=== PATIENT | male | born 1980 | race Hispanic/Latino ===

== ENCOUNTER 2020-05-05 08:18 | Emergency (ER) | payer OTHER ==
[2020-05-05] MEDS ORDERED: SODIUM CHLORIDE 0.9% 1000 ML 1,000 ML IV ONE (09:12)
[2020-05-05] MEDS ORDERED: diphenhydrAMINE 50 MG/ML VIAL IV ONE (09:12)
[2020-05-05] MEDS ORDERED: FAMOTIDINE 20 MG/2 ML INJ IV ONE (09:12)
--- NOTE | 2020-05-05 09:24 | Emergency Department Report ---
ED General Adult HPI - General Chief complaint: Pain General Stated complaint: BODY PAIN Time Seen by Provider: 05/05/20 08:37 Source: EMS Mode of arrival: Ambulatory Limitations: No Limitations - History of Present Illness Initial comments: 40-year-old male with past medical history of substance abuse presents to the hospital from senior care (incarcerated x4 months) with possible allergic reaction. Patient states he woke up 3 AM with generalized muscle cramps and developed a burning rash to his face and chest. Patient denies nausea, vomiting, fever, co ugh, shortness of breath, tongue swelling, difficulty swallowing, or throat swelling. Patient received Benadryl and Decadron from senior care prior to arrival however, dose of medications were not specified. Patient denies taking any current medications, drugs, or new food exposure. Patient does states he has an allergy to bee stings. Severity scale (0 -10): 0 - Related Data Previous Rx's Medication Instructions Recorded Last Taken Type EPINEPHrine [Epipen] 0.3 mg IJ ONCE PRN #1 auto.injct 05/05/20 Unknown Rx Famotidine [Pepcid] 20 mg PO BID #10 tablet 05/05/20 Unknown Rx diphenhydrAMINE [Benadryl CAP] 50 mg PO Q8HR PRN #20 capsule 05/05/20 Unknown Rx predniSONE [Deltasone] 40 mg PO QDAY 5 Days tab 05/05/20 Unknown Rx Allergies Allergy/AdvReac Type Severity Reaction Status Date / Time No Known Allergies Allergy Unverified 05/05/20 09:13 ED Review of Systems ROS: Stated complaint: BODY PAIN Other details as noted in HPI Comment: All other systems reviewed and negative ED Past Medical Hx - Past Medical History Previous Medical History?: No - Surgical History Past Surgical History?: No - Social History Smoking Status: Current Every Day Smoker Substance Use Type: None - Medications Home Medications: Home Medications Medication Instructions Recorded Confirmed Last Taken Type EPINEPHrine [Epipen] 0.3 mg IJ ONCE PRN #1 auto.injct 05/05/20 Unknown Rx Famotidine [Pepcid] 20 mg PO BID #10 tablet 05/05/20 Unknown Rx diphenhydrAMINE [Benadryl CAP] 50 mg PO Q8HR PRN #20 capsule 05/05/20 Unknown Rx predniSONE [Deltasone] 40 mg PO QDAY 5 Days tab 05/05/20 Unknown Rx ED Physical Exam - General Limitations: No Limitations - Other Other exam information: General: No acute distress Head: Atraumatic Eyes: normal appearance ENT: Moist mucous membranes Neck: Normal appearance, no midline tenderness Chest: Clear to auscultation bilaterally CV: Regular rate and rhythm Abdomen: Soft, normal bowel sounds, nontender, nondistended, no rebound or guarding Back: Normal inspection Extremity: Normal inspection, full range of motion Neuro: Alert O x 3, no facial asymmetry, speech clear, no gross motor sensory deficit Psych: Appropriate behavior Skin: Erythematous rash to face and trunk ED Course Vital Signs 05/05/20 05/05/20 05/05/20 08:38 08:48 11:31 Temperature 99.0 F Pulse Rate 72 77 Respiratory 18 18 18 Rate Blood Pressure 124/80 Blood Pressure 112/75 [Left] O2 Sat by Pulse 99 99 98 Oximetry ED Medical Decision Making - Lab Data Result diagrams: 05/05/20 09:47 05/05/20 09:47 Lab Results 05/05/20 05/05/20 Range/Units 09:47 09:47 WBC 5.4 (4.5-11.0) K/mm3 RBC 4.29 (3.65-5.03) M/mm3 Hgb 14.0 (11.8-15.2) gm/dl Hct 40.5 (35.5-45.6) % MCV 94 (84-94) fl MCH 33 H (28-32) pg MCHC 35 H (32-34) % RDW 12.6 L (13.2-15.2) % Plt Count 154 (140-440) K/mm3 Lymph % (Auto) 8.8 L (13.4-35.0) % [place] % (Auto) 6.9 (0.0-7.3) % Eos % (Auto) 0.1 (0.0-4.3) % Baso % (Auto) 0.4 (0.0-1.8) % Lymph # (Auto) 0.5 L (1.2-5.4) K/mm3 [place] # (Auto) 0.4 (0.0-0.8) K/mm3 Eos # (Auto) 0.0 (0.0-0.4) K/mm3 Baso # (Auto) 0.0 (0.0-0.1) K/mm3 Seg Neutrophils % 83.8 H (40.0-70.0) % Seg Neutrophils # 4.6 (1.8-7.7) K/mm3 Sodium 140 (137-145) mmol/L Potassium 4.4 (3.6-5.0) mmol/L Chloride 106.1 (98-107) mmol/L Carbon Dioxide 21 L (22-30) mmol/L Anion Gap 17 mmol/L BUN 14 (9-20) mg/dL Creatinine 1.0 (0.8-1.3) mg/dL Estimated GFR > 60 ml/min BUN/Creatinine Ratio 14 % Glucose 97 (75-100) mg/dL Calcium 9.8 (8.4-10.2) mg/dL Magnesium 1.90 (1.7-2.3) mg/dL Total Creatine Kinase 334 H (55-170) units/L - Medical Decision Making Patient observed in the ED for over 4 hours without advancement of allergy symptoms. He still has a visible rash but states overall his symptoms are improved. No signs of airway compromise or swelling. It is unclear what caused patient's allergic reaction. Patient will be discharged back to the senior care with allergy med prescription including for EpiPen as needed Critical Care Time: No Critical care attestation.: If time is entered above; I have spent that time in minutes in the direct care of this critically ill patient, excluding procedure time. ED Disposition Clinical Impression: Allergic reaction Disposition: DC-01 TO HOME OR SELFCARE Is pt being admited?: No Does the pt Need Aspirin: No Condition: Stable Instructions: Allergies, Adult, [id number], How to Use an Auto-Injector Pen Additional Instructions: Take the medication as prescribed. Follow-up with your doctor or doctor/clinic provided. Return if symptoms worsen as indicated by your discharge instructions. Prescriptions: diphenhydrAMINE [Benadryl CAP] 50 mg PO Q8HR PRN #20 capsule PRN Reason: Allergy Symptoms predniSONE [Deltasone] 40 mg PO QDAY 5 Days tab EPINEPHrine [Epipen] 0.3 mg IJ ONCE PRN #1 auto.injct PRN Reason: Anaphylaxis Famotidine [Pepcid] 20 mg PO BID #10 tablet Referrals: PRIMARY CARE, [Primary Care Provider] - 3-5 Days Time of Disposition: 12:26
[2020-05-05 11:13] LABS: Basophils % (Auto) 0.4 % (0.0-1.8); Eosinophils % (Auto) 0.1 % (0.0-4.3); Hematocrit 40.5 % (35.5-45.6); Lymphocytes # (Auto) 0.5 K/mm3 (1.2-5.4); Lymphocytes % (Auto) 8.8 % (13.4-35.0); Mean Corpuscular HGB Conc 35 % (32-34); Mean Corpuscular Volume 94 fl (84-94); Monocytes # (Auto) 0.4 K/mm3 (0.0-0.8); Monocytes % (Auto) 6.9 % (0.0-7.3); Platelet Count 154 K/mm3 (140-440); Red Blood Count 4.29 M/mm3 (3.65-5.03); Red Cell Distribution Width 12.6 % (13.2-15.2)
[2020-05-05 11:28] LABS: BUN/Creatinine Ratio 14; Blood Urea Nitrogen 14 mg/dL (9-20); Calcium 9.8 mg/dL (8.4-10.2); Hemolysis Index 23
[2020-05-05 11:32] VITALS: BP 112/75
== END 2020-05-05 12:41 | disposition home or self-care (01) ==
LOC: ED 08:18
DX: T78.40XA Allergy, unspecified, initial encounter (principal); F17.200 Nicotine dependence, unspecified, uncomplicated; Z79.899 Other long term (current) drug therapy; X58.XXXA Exposure to other specified factors, initial encounter
CPT/HCPCS: 36415; 80048; 82550; 83735; 85025; 96361; 96374; 96375; 99284; J1200; J7030

== ENCOUNTER 2020-09-27 14:58 | Inpatient (IN) | payer OTHER ==
--- NOTE | 2020-09-27 17:09 | Emergency Department Report ---
ED Male HPI - General Chief complaint: Wound/Laceration Stated complaint: CHEMICAL/UTI Time Seen by Provider: 09/27/20 16:13 Source: patient Mode of arrival: Ambulatory Limitations: No Limitations - History of Present Illness Initial comments: Patient is a 40-year-old male who presents emergency room with complaints of penile pain. Patient states he injected meth into the base of his penis 5 days ago. Patient states 2 days ago he developed a black area to the head of his penis. Patient states the pain is severe. Patient dates the pain is a 10 out of 10. Patient states he is unable to urinate. Patient states he has to stick something into the head of his penis to help him urinate. Patient denies fever and chills. Patient states this is the first time he ever injected meth into his penis. Patient states he normally injects into his legs. Patient also complains of a abscess to the left thigh. Patient states the pain of his thigh is a 5 out of 10. Patient states the penile pain is better with rest. Pain is worse with palpation and movement and urinating. Patient denies recent travel. Patient denies recent international travel. Patient denies exposure to the novel coronavirus. Patient denies sick contacts. Patient denies fever and chills. Patient denies cough. Patient denies diarrhea. Patient denies coming in contact with anybody with symptoms of the novel coronavirus. -: Sudden Severity: severe Severity scale (0 -10): 10 Consistency: constant Improves with: rest Worsens with: urination, palpation, movement trauma swelling, urinary retention, dysuria - Related Data Sexually active: No Previous Rx's Medication Instructions Recorded Last Taken Type EPINEPHrine [Epipen] 0.3 mg IJ ONCE PRN #1 auto.injct 05/05/20 Unknown Rx Famotidine [Pepcid] 20 mg PO BID #10 tablet 05/05/20 Unknown Rx RX: predniSONE [Deltasone] 40 mg PO QDAY 5 Days tab 05/05/20 Unknown Rx diphenhydrAMINE [Benadryl CAP] 50 mg PO Q8HR PRN #20 capsule 05/05/20 Unknown Rx Allergies Allergy/AdvReac Type Severity Reaction Status Date / Time No Known Allergies Allergy Unverified 05/05/20 09:13 ED Review of Systems ROS: Stated complaint: CHEMICAL/UTI Other details as noted in HPI Constitutional: denies: chills, fever Eyes: denies: eye pain, eye discharge, vision change ENT: denies: ear pain, throat pain Respiratory: denies: cough, shortness of breath, wheezing Cardiovascular: denies: chest pain, palpitations Endocrine: no symptoms reported Gastrointestinal: denies: abdominal pain, nausea, diarrhea Genitourinary: as per HPI, dysuria. denies: urgency Musculoskeletal: denies: back pain, joint swelling, arthralgia Skin: denies: rash, lesions Neurological: denies: headache, weakness, paresthesias Psychiatric: denies: anxiety, depression Hematological/Lymphatic: denies: easy bleeding, easy bruising ED Past Medical Hx - Past Medical History Previous Medical History?: No - Surgical History Past Surgical History?: No - Family History Family history: no significant - Social History Smoking Status: Current Every Day Smoker Substance Use Type: Alcohol, Methamphetamines - Medications Home Medications: Home Medications Medication Instructions Recorded Confirmed Last Taken Type EPINEPHrine [Epipen] 0.3 mg IJ ONCE PRN #1 auto.injct 05/05/20 Unknown Rx Famotidine [Pepcid] 20 mg PO BID #10 tablet 05/05/20 Unknown Rx RX: predniSONE [Deltasone] 40 mg PO QDAY 5 Days tab 05/05/20 Unknown Rx diphenhydrAMINE [Benadryl CAP] 50 mg PO Q8HR PRN #20 capsule 05/05/20 Unknown Rx ED Physical Exam - General Limitations: No Limitations General appearance: alert, in no apparent distress - Head Head exam: Present: atraumatic, normocephalic - Eye Eye exam: Present: normal appearance - ENT ENT exam: Present: mucous membranes moist - Neck Neck exam: Present: normal inspection - Respiratory Respiratory exam: Present: normal lung sounds bilaterally. Absent: respiratory distress - Cardiovascular Cardiovascular Exam: Present: regular rate, normal rhythm. Absent: systolic murmur, diastolic murmur, rubs, gallop - GI/Abdominal GI/Abdominal exam: Present: soft, normal bowel sounds. Absent: distended, guarding - Rectal Rectal exam: Present: deferred - exam: Present: other (General exam done. Black area to the barraza of the penis noted. The black area is around the meatus. The meatus is not patent. The penis is tender to palpation. The injection site is at the base of the penis. Red area noted.) - Extremities Exam Extremities exam: Present: normal inspection (Except left thigh.), tenderness (Tenderness palpation to the left thigh with red area.) - Back Exam Back exam: Present: normal inspection - Neurological Exam Neurological exam: Present: alert, oriented X3 - Psychiatric Psychiatric exam: Present: normal affect, normal mood - Skin Skin exam: Present: warm, dry, normal color, other (Open cellulitis noted to the left thigh with a black eschar.). Absent: rash ED Course Vital Signs 09/27/20 15:04 Temperature 98.2 F Pulse Rate 95 H Respiratory 18 Rate Blood Pressure 131/84 O2 Sat by Pulse 97 Oximetry - Reevaluation(s) Reevaluation #1: Patient has an IV. Patient is complaining of worsening and severe pain in the penis. Patient will be given Dilaudid and fluids. Patient also be given Clinda. 09/27/20 19:37 Reevaluation #2: Patient was able to urinate a little bit. Patient does not want a Terrazas. 09/27/20 20:30 Reevaluation #3: I discussed all results with patient. I discussed plan of care with patient. Patient agrees with plan of care and admission. Patient to be admitted to the hospitalist service. 09/27/20 21:52 - Consultations Consultation #1: I discussed case with urologist, Dr. Harvey. Dr. Harvey recommends placing a Terrazas and having general surgery see the patient here. Dr. Harvey does not recommend a emergent transfer to [facility] for urologic and would not accept the patient. 09/27/20 17:21 Consultation #2: I discussed case with Dr. Mesa, general surgery. Dr. Mesa would like urology involved with the patient's care. 09/27/20 21:35 Consultation #3: hospitalist consulted for admission. Hospitalist to admit patient. Hospitalist wants the patient to be bridged to [facility] with remote telemetry. 09/27/20 21:51 09/27/20 21:51 ED Medical Decision Making - Lab Data Result diagrams: 09/27/20 19:33 09/27/20 19:33 - Medical Decision Making Patient is a 40-year-old male that presents emergency room with complaints of penile pain. Patient states that he injected meth into his penis a few days back. Patient has severe tenderness to the barraza of his penis. Patient has a blackened area around the meatus. Patient also complained of some dysuria. Patient also complained of secondary not wanting to pee and urinary retention due to dysuria and pain. patient had labs done which were essentially unremarkable. I discussed the case with [facility] to see if there was a need for emergent debridement and urology states that the case can be managed here. Patient given IV Clinda and pain medications and fluids. I discussed the case with general surgery general surgery says patient to be admitted but urology needs to be involved. Patient admitted to the hospital service for further evaluation treatment. Critical care time documented due to the multiple reassessments, prolonged time at the bedside, interpretation of diagnostics and labs. . - Differential Diagnosis Penile abscess, penis pain, cellulitis Critical Care Time: Yes Critical care time in (mins) excluding proc time.: 35 Critical care attestation.: If time is entered above; I have spent that time in minutes in the direct care of this critically ill patient, excluding procedure time. Critical Care Time: 35 minutes ED Disposition Clinical Impression: Penile pain, Cellulitis of left thigh, Penile cellulitis Disposition: DC-09 OP ADMIT IP TO THIS HOSP Is pt being admited?: Yes Does the pt Need Aspirin: No Condition: Critical Time of Disposition: 21:43
[2020-09-27] MEDS ORDERED: CLINDAMYCIN 600 MG/50 mL 600 MG/50 ML BAG IV ONE (17:10)
[2020-09-27] MEDS ORDERED: HYDROmorphone 1 MG/1 ML INJ IV ONE ×2 (19:23→20:35)
[2020-09-27] MEDS ORDERED: ONDANSETRON 4 MG/2 ML INJ IV ONE (19:23)
[2020-09-27] MEDS ORDERED: SODIUM CHLORIDE 0.9% 1000 ML 1,000 ML IV ONE (19:26)
[2020-09-27 19:39] LABS: Basophils # (Auto) 0.1 K/mm3 (0.0-0.1); Basophils % (Auto) 0.8 % (0.0-1.8); Eosinophils # (Auto) 0.3 K/mm3 (0.0-0.4); Eosinophils % (Auto) 3.1 % (0.0-4.3); Hematocrit 36.3 % (35.5-45.6); Hemoglobin 12.2 gm/dl (11.8-15.2); Lymphocytes # (Auto) 1.8 K/mm3 (1.2-5.4); Mean Corpuscular HGB Conc 34 % (32-34); Mean Corpuscular Volume 93 fl (84-94); Monocytes # (Auto) 0.7 K/mm3 (0.0-0.8); Monocytes % (Auto) 8.2 % (0.0-7.3); Platelet Count 293 K/mm3 (140-440); Red Blood Count 3.89 M/mm3 (3.65-5.03); Red Cell Distribution Width 12.5 % (13.2-15.2)
[2020-09-27 20:06] LABS: Alanine Aminotransferase 18 units/L (7-56); Albumin 4.1 g/dL (3.9-5); BUN/Creatinine Ratio 15; Blood Urea Nitrogen 12 mg/dL (9-20); Calcium 9.1 mg/dL (8.4-10.2); Hemolysis Index 2
[2020-09-27 22:09] LABS: Bilirubin,Urine NEG (Negative); Blood,Urine MOD (Negative); Color,Urine Yellow (Yellow); Mucus,Urine FEW /HPF; Protein,Urine <15 mg/dL mg/dL (Negative)
[2020-09-27] MEDS ORDERED: ACETAMINOPHEN 325 MG TAB PO PRN (22:14)
[2020-09-27] MEDS ORDERED: ONDANSETRON 4 MG/2 ML INJ IV PRN (22:14)
[2020-09-27] MEDS ORDERED: hydrALAZINE 20 MG/1 ML INJ IV PRN (22:16)
--- NOTE | 2020-09-27 22:21 | History and Physical Report ---
History of Present Illness Date of examination: 09/27/20 Date of admission: 09/27/20 21:52 Chief complaint: Penile pain and cellulitis History of present illness: 40-year-old male with history of meth abuse was brought to the emergency room because of penile pain for last 5 days. patient states he injected meth into the base of his penis 5 days ago. Patient states 2 days ago he developed a black area to the head of his penis. Patient states the pain is severe. Patient dates the pain is a 10 out of 10. Patient states he is unable to urinate. Patient states he has to stick something into the head of his penis to help him urinate. Patient denies fever and chills. Patient states this is the first time he ever injected meth into his penis. Patient states he normally injects into his legs. Patient also complains of a abscess to the left thigh. Patient states the pain of his thigh is a 5 out of 10. Patient states the penile pain is better with rest. Pain is worse with palpation and movement and urinating. Past History Past Medical History: other (Meth abuse) Medications and Allergies Allergies Allergy/AdvReac Type Severity Reaction Status Date / Time No Known Allergies Allergy Unverified 05/05/20 09:13 Home Medications Medication Instructions Recorded Confirmed Last Taken Type EPINEPHrine [Epipen] 0.3 mg IJ ONCE PRN #1 auto.injct 05/05/20 Unknown Rx Famotidine [Pepcid] 20 mg PO BID #10 tablet 05/05/20 Unknown Rx diphenhydrAMINE [Benadryl CAP] 50 mg PO Q8HR PRN #20 capsule 05/05/20 Unknown Rx predniSONE [Deltasone] 40 mg PO QDAY 5 Days tab 05/05/20 Unknown Rx Review of Systems Genitourinary Male: genital pain, genital sores, other (Penile celluliti s/abscess) Exam - Constitutional Vitals: Temp Pulse Resp BP Pulse Ox 98.2 F 95 H 18 131/84 97 09/27/20 15:04 09/27/20 15:04 09/27/20 15:04 09/27/20 15:04 09/27/20 15:04 General appearance: Present: no acute distress, well-nourished - EENT Eyes: Present: PERRL ENT: hearing intact, clear oral mucosa - Neck Neck: Present: supple, normal ROM - Respiratory Respiratory effort: normal Respiratory: bilateral: CTA - Cardiovascular Heart Sounds: Present: S1 & S2. Absent: rub, click - Extremities Extremities: pulses symmetrical, No edema Peripheral Pulses: within normal limits - Abdominal General gastrointestinal: Present: soft, non-tender, non-distended, normal bowel sounds Male genitourinary: Present: tender (Penile cellulitis and abscess) - Integumentary Integumentary: Present: clear, warm, dry - Musculoskeletal Musculoskeletal: gait normal, strength equal bilaterally - Psychiatric Psychiatric: appropriate mood/affect, intact judgment & insight - Neurologic Neurologic: CNII-XII intact, moves all extremities Results - Labs CBC & Chem 7: 09/27/20 19:33 09/27/20 19:33 Labs: Laboratory Last Values WBC 8.1 K/mm3 (4.5-11.0) 09/27/20 19:33 RBC 3.89 M/mm3 (3.65-5.03) 09/27/20 19:33 Hgb 12.2 gm/dl (11.8-15.2) 09/27/20 19:33 Hct 36.3 % (35.5-45.6) 09/27/20 19:33 MCV 93 fl (84-94) 09/27/20 19:33 MCH 31 pg (28-32) 09/27/20 19:33 MCHC 34 % (32-34) 09/27/20 19:33 RDW 12.5 % (13.2-15.2) L 09/27/20 19:33 Plt Count 293 K/mm3 (140-440) 09/27/20 19:33 Lymph % (Auto) 22.0 % (13.4-35.0) 09/27/20 19:33 [place] % (Auto) 8.2 % (0.0-7.3) H 09/27/20 19:33 Eos % (Auto) 3.1 % (0.0-4.3) 09/27/20 19:33 Baso % (Auto) 0.8 % (0.0-1.8) 09/27/20 19:33 Lymph # (Auto) 1.8 K/mm3 (1.2-5.4) 09/27/20 19:33 [place] # (Auto) 0.7 K/mm3 (0.0-0.8) 09/27/20 19:33 Eos # (Auto) 0.3 K/mm3 (0.0-0.4) 09/27/20 19:33 Baso # (Auto) 0.1 K/mm3 (0.0-0.1) 09/27/20 19:33 Seg Neutrophils % 65.9 % (40.0-70.0) 09/27/20 19:33 Seg Neutrophils # 5.4 K/mm3 (1.8-7.7) 09/27/20 19:33 Sodium 138 mmol/L (137-145) 09/27/20 19:33 Potassium 4.1 mmol/L (3.6-5.0) 09/27/20 19:33 Chloride 103.9 mmol/L (98-107) 09/27/20 19:33 Carbon Dioxide 25 mmol/L (22-30) 09/27/20 19:33 Anion Gap 13 mmol/L 09/27/20 19:33 BUN 12 mg/dL (9-20) 09/27/20 19:33 Creatinine 0.8 mg/dL (0.8-1.3) 09/27/20 19:33 Estimated GFR > 60 ml/min 09/27/20 19:33 BUN/Creatinine Ratio 15 % 09/27/20 19:33 Glucose 91 mg/dL (75-100) 09/27/20 19:33 Calcium 9.1 mg/dL (8.4-10.2) 09/27/20 19:33 Total Bilirubin 0.50 mg/dL (0.1-1.2) 09/27/20 19:33 AST 20 units/L (5-40) 09/27/20 19:33 ALT 18 units/L (7-56) 09/27/20 19:33 Alkaline Phosphatase 110 units/L (35-129) 09/27/20 19:33 Total Protein 6.2 g/dL (6.3-8.2) L 09/27/20 19:33 Albumin 4.1 g/dL (3.9-5) 09/27/20 19:33 Albumin/Globulin Ratio 2.0 % 09/27/20 19:33 Urine Color Yellow (Yellow) 09/27/20 22:00 Urine Turbidity Hazy (Clear) 09/27/20 22:00 Urine pH 6.0 (5.0-7.0) 09/27/20 22:00 Ur Specific [place] 1.026 (1.003-1.030) 09/27/20 22:00 Urine Protein <15 mg/dl mg/dL (Negative) 09/27/20 22:00 Urine Glucose (UA) Neg mg/dL (Negative) 09/27/20 22:00 Urine Ketones Neg mg/dL (Negative) 09/27/20 22:00 Urine Blood Mod (Negative) 09/27/20 22:00 Urine Nitrite Neg (Negative) 09/27/20 22:00 Urine Bilirubin Neg (Negative) 09/27/20 22:00 Urine Urobilinogen 4.0 mg/dL (<2.0) 09/27/20 22:00 Ur Leukocyte Esterase Neg (Negative) 09/27/20 22:00 Urine WBC (Auto) 6.0 /HPF (0.0-6.0) 09/27/20 22:00 Urine RBC (Auto) 36.0 /HPF (0.0-6.0) 09/27/20 22:00 U Epithel Cells (Auto) < 1.0 /HPF (0-13.0) 09/27/20 22:00 Urine Mucus Few /HPF 09/27/20 22:00 Assessment and Plan VTE prophylaxis?: Chemical Plan of care discussed with patient/family: Yes - Patient Problems (1) Penile cellulitis Current Visit: Yes Status: Acute Plan to address problem: Admit the patient to the medical floor. Cardiac diet. Half-normal saline at the rate of 100 cc/h. Zosyn 4.5 g IV every 8 hours and vancomycin 1 g IV every 12 hours. Will consult surgery as well as urology to see the patient. Blood culture. Wound culture recheck CBC BMP in the morning (2) Cellulitis of left thigh Current Visit: Yes Status: Acute Plan to address problem: Half-normal saline at the rate of 100 cc/h. Zosyn 4.5 g IV every 8 hours and vancomycin 1 g IV every 12 hours. Will consult surgery as well as urology to see the patient. Blood culture. Wound culture recheck CBC BMP in the morning (3) Penile pain Current Visit: Yes Status: Acute Plan to address problem: Tylenol 659 p.o. every 6 hours as needed. Morphine 2 mg IV every 4 hours as needed. (4) Methamphetamine abuse Current Visit: Yes Status: Acute Plan to address problem: We will counseled the patient regarding quit taking methamphetamine. (5) DVT prophylaxis Current Visit: Yes Status: Acute Plan to address problem: Heparin 5000 units subcu every 8 hours for DVT prophylaxis. Pepcid 20 mg p.o. twice daily for GI prophylaxis. Patient is a full code
[2020-09-27] MEDS ORDERED: SODIUM CHLORIDE 0.45% 1000 ML 1,000 ML IV SCH (23:00)
[2020-09-27] MEDS ORDERED: VANCOMYCIN/NS 1 GM/250 ML 1 GM/250 ML BAG IV SCH (23:00)
[2020-09-27] MEDS: MORPHINE 2 MG/1 ML INJ IV PRN (23:17)
[2020-09-27] MEDS: PIPERACIL/TAZOBACTA 4.5/NS 100 4.5 GM/100 ML VIAL IV SCH (23:17)
[2020-09-28] MEDS: HEPARIN 5,000 UNIT/1 ML VIAL SUB-Q SCH ×3 (05:56→22:14)
[2020-09-28] MEDS ORDERED: VANCOMYCIN PHARMACY TO DOSE IV SCH (08:00)
[2020-09-28 08:43] LABS: Basophils # (Auto) 0.1 K/mm3 (0.0-0.1); Basophils % (Auto) 1.2 % (0.0-1.8); Eosinophils # (Auto) 0.3 K/mm3 (0.0-0.4); Eosinophils % (Auto) 3.8 % (0.0-4.3); Hematocrit 36.3 % (35.5-45.6); Hemoglobin 12.4 gm/dl (11.8-15.2); Lymphocytes # (Auto) 1.2 K/mm3 (1.2-5.4); Lymphocytes % (Auto) 15.9 % (13.4-35.0); Mean Corpuscular HGB Conc 34 % (32-34); Mean Corpuscular Volume 94 fl (84-94); Monocytes # (Auto) 0.4 K/mm3 (0.0-0.8); Monocytes % (Auto) 5.7 % (0.0-7.3); Platelet Count 275 K/mm3 (140-440); Red Blood Count 3.87 M/mm3 (3.65-5.03); Red Cell Distribution Width 12.6 % (13.2-15.2)
[2020-09-28 08:54] LABS: INR 0.92 (0.87-1.13)
--- NOTE | 2020-09-28 09:25 | Progress Note ---
Assessment and Plan Assessment and plan: (1) Penile cellulitis Current Visit: Yes Status: Acute Plan to address problem: Admit the patient to the medical floor. Cardiac diet. Half-normal saline at the rate of 100 cc/h. Zosyn 4.5 g IV every 8 hours and vancomycin 1 g IV every 12 hours. Will consult surgery as well as urology to see the patient. Blood culture. Wound culture recheck CBC BMP in the morning (2) Cellulitis of left thigh Current Visit: Yes Status: Acute Plan to address problem: Half-normal saline at the rate of 100 cc/h. Zosyn 4.5 g IV every 8 hours and vancomycin 1 g IV every 12 hours. Will consult surgery as well as urology to see the patient. Blood culture. Wound culture recheck CBC BMP in the morning (3) Penile pain Current Visit: Yes Status: Acute Plan to address problem: Tylenol 659 p.o. every 6 hours as needed. Morphine 2 mg IV every 4 hours as needed. (4) Methamphetamine abuse Current Visit: Yes Status: Acute Plan to address problem: We will counseled the patient regarding quit taking methamphetamine. (5) DVT prophylaxis Current Visit: Yes Status: Acute Plan to address problem: Heparin 5000 units subcu every 8 hours for DVT prophylaxis. Pepcid 20 mg p.o. twice daily for GI prophylaxis. Patient is a full code 09/28/2020 -Continue with IV Zosyn and vancomycin. Patient has ulcer on the tip of the penis and on the left inner thigh. Patient is complaining of pain when he urinates. There is a consult placed for urology and infectious disease. -Patient was extensively counseled about cessation of meth use -Pain control -Continue continue with current management History Interval history: Patient was seen and evaluated this morning Patient is complaining when he urinates Hospitalist Physical - Physical exam Narrative exam: Not in cardiopulmonary distress. The patient appeared well nourished and normally developed. Vital signs as documented. Head exam is unremarkable. No scleral icterus . Neck is without jugular venous distension, thyromegaly, or carotid bruits. Lungs are clear to auscultation. Cardiac exam reveals regular rate and Rhythm. Abdominal exam reveals normal bowel sounds, nontender, no organomegaly. Extremities are nonedematous and both femoral and pedal pulses are normal. CLINICAL CONSULTANT: Alert and oriented 3. No focal weakness. ; small dark ulcer on the tip of the penis Skin; there is small dark wound on the left upper inner thigh - Constitutional Vitals: Temp Pulse Resp BP Pulse Ox 97.6 F 65 16 121/78 98 09/28/20 04:09 09/28/20 04:09 09/28/20 04:09 09/28/20 04:09 09/28/20 08:26 General appearance: Present: no acute distress, well-nourished Results - Labs CBC & Chem 7: 09/28/20 08:14 09/28/20 08:14 Labs: Laboratory Last Values WBC 7.8 K/mm3 (4.5-11.0) 09/28/20 08:14 RBC 3.87 M/mm3 (3.65-5.03) 09/28/20 08:14 Hgb 12.4 gm/dl (11.8-15.2) 09/28/20 08:14 Hct 36.3 % (35.5-45.6) 09/28/20 08:14 MCV 94 fl (84-94) 09/28/20 08:14 MCH 32 pg (28-32) 09/28/20 08:14 MCHC 34 % (32-34) 09/28/20 08:14 RDW 12.6 % (13.2-15.2) L 09/28/20 08:14 Plt Count 275 K/mm3 (140-440) 09/28/20 08:14 Lymph % (Auto) 15.9 % (13.4-35.0) 09/28/20 08:14 [place]royo % (Auto) 5.7 % (0.0-7.3) 09/28/20 08:14 Eos % (Auto) 3.8 % (0.0-4.3) 09/28/20 08:14 Baso % (Auto) 1.2 % (0.0-1.8) 09/28/20 08:14 Lymph # (Auto) 1.2 K/mm3 (1.2-5.4) 09/28/20 08:14 [place] # (Auto) 0.4 K/mm3 (0.0-0.8) 09/28/20 08:14 Eos # (Auto) 0.3 K/mm3 (0.0-0.4) 09/28/20 08:14 Baso # (Auto) 0.1 K/mm3 (0.0-0.1) 09/28/20 08:14 Seg Neutrophils % 73.4 % (40.0-70.0) H 09/28/20 08:14 Seg Neutrophils # 5.8 K/mm3 (1.8-7.7) 09/28/20 08:14 PT 12.9 Sec. (12.2-14.9) 09/28/20 08:14 INR 0.92 (0.87-1.13) 09/28/20 08:14 Sodium 138 mmol/L (137-145) 09/27/20 19:33 Potassium 4.1 mmol/L (3.6-5.0) 09/27/20 19:33 Chloride 103.9 mmol/L (98-107) 09/27/20 19:33 Carbon Dioxide 25 mmol/L (22-30) 09/27/20 19:33 Anion Gap 13 mmol/L 09/27/20 19:33 BUN 12 mg/dL (9-20) 09/27/20 19:33 Creatinine 0.8 mg/dL (0.8-1.3) 09/27/20 19:33 Estimated GFR > 60 ml/min 09/27/20 19:33 BUN/Creatinine Ratio 15 % 09/27/20 19:33 Glucose 91 mg/dL (75-100) 09/27/20 19:33 Calcium 9.1 mg/dL (8.4-10.2) 09/27/20 19:33 Total Bilirubin 0.50 mg/dL (0.1-1.2) 09/27/20 19:33 AST 20 units/L (5-40) 09/27/20 19:33 ALT 18 units/L (7-56) 09/27/20 19:33 Alkaline Phosphatase 110 units/L (35-129) 09/27/20 19:33 Total Protein 6.2 g/dL (6.3-8.2) L 09/27/20 19:33 Albumin 4.1 g/dL (3.9-5) 09/27/20 19:33 Albumin/Globulin Ratio 2.0 % 09/27/20 19:33 Urine Color Yellow (Yellow) 09/27/20 22:00 Urine Turbidity Hazy (Clear) 09/27/20 22:00 Urine pH 6.0 (5.0-7.0) 09/27/20 22:00 Ur Specific [place] 1.026 (1.003-1.030) 09/27/20 22:00 Urine Protein <15 mg/dl mg/dL (Negative) 09/27/20 22:00 Urine Glucose (UA) Neg mg/dL (Negative) 09/27/20 22:00 Urine Ketones Neg mg/dL (Negative) 09/27/20 22:00 Urine Blood Mod (Negative) 09/27/20 22:00 Urine Nitrite Neg (Negative) 09/27/20 22:00 Urine Bilirubin Neg (Negative) 09/27/20 22:00 Urine Urobilinogen 4.0 mg/dL (<2.0) 09/27/20 22:00 Ur Leukocyte Esterase Neg (Negative) 09/27/20 22:00 Urine WBC (Auto) 6.0 /HPF (0.0-6.0) 09/27/20 22:00 Urine RBC (Auto) 36.0 /HPF (0.0-6.0) 09/27/20 22:00 U Epithel Cells (Auto) < 1.0 /HPF (0-13.0) 09/27/20 22:00 Urine Mucus Few /HPF 09/27/20 22:00 [place]/IV: Voiding Method Toilet Active Medications - Current Medications Current Medications: Generic Name Dose Route Start Last Admin Trade Name Freq PRN Reason Stop Dose Admin Acetaminophen 650 mg 09/27/20 22:14 Acetaminophen 325 Mg Tab PO Q4H PRN Pain MILD(1-3)/Fever >100.5/BUSTOS Famotidine 20 mg 09/28/20 10:00 Famotidine 20 Mg Tab PO BID PHANI Heparin Sodium (Porcine) 5,000 unit 09/28/20 06:00 09/28/20 05:56 Heparin 5,000 Unit/1 Ml Vial SUB-Q 5,000 unit Q8HR PHANI Administration Hydralazine HCl 10 mg 09/27/20 22:16 Hydralazine 20 Mg/1 Ml Inj IV Q6H PRN htn Sodium Chloride 1,000 mls @ 100 mls/hr 09/27/20 23:00 Nacl 0.45% 1000 Ml IV DIRECT PHANI Piperacillin Sod/Tazobactam Sod 4.5 gm in 100 mls @ 200 mls/hr 09/27/20 23:00 09/28/20 01:13 Zosyn/Ns 4.5gm/100ml IV Infused Q8H [facility] Infusion Protocol Vancomycin HCl 1,250 mg/ 275 mls @ 166.667 mls/hr 09/28/20 16:00 Sodium Chloride IV Q12H [facility] Morphine Sulfate 2 mg 09/27/20 22:14 09/27/20 23:17 Morphine 2 Mg/1 Ml Inj IV 2 mg Q4H PRN Administration Pain, Moderate (4-6) Ondansetron HCl 4 mg 09/27/20 22:14 Ondansetron 4 Mg/2 Ml Inj IV Q8H PRN Nausea And Vomiting Sodium Chloride 10 ml 09/28/20 10:00 Sodium Chloride 0.9% 10 Ml Flush Syringe IV BID PHANI Sodium Chloride 10 ml 09/27/20 22:14 Sodium Chloride 0.9% 10 Ml Flush Syringe IV PRN PRN LINE FLUSH
[2020-09-28] MEDS: PIPERACIL/TAZOBACTA 4.5/NS 100 4.5 GM/100 ML VIAL IV SCH ×2 (09:52→16:40)
[2020-09-28] MEDS: FAMOTIDINE 20 MG TAB PO SCH ×2 (09:52→22:11)
[2020-09-28 09:56] LABS: Blood Urea Nitrogen 11 mg/dL (9-20); Calcium 9.1 mg/dL (8.4-10.2); Hemolysis Index 47
[2020-09-28 10:15] LABS: BUN/Creatinine Ratio 16
[2020-09-28] MEDS: MORPHINE 2 MG/1 ML INJ IV PRN ×3 (10:42→23:02)
[2020-09-28] MEDS ORDERED: KETOROLAC 10 MG TAB PO PRN (12:41)
--- NOTE | 2020-09-28 13:28 | Consultation ---
History of Present Illness - Reason for Consult Consult date: 09/28/20 - History of Present Illness NEW TO OUR SERVICE 40-year-old male with history of meth abuse was brought to the emergency room because of penile pain for last 5 days. patient states he injected meth into the base of his penis 5 days ago. Patient states 2 days ago he developed a black area to the head of his penis. Patient states the pain is severe. Patient dates the pain is a 10 out of 10. Patient states he is unable to urinate. Patient states he has to stick something into the head of his penis to help him urinate. Patient denies fever and chills. Patient states this is the first time he ever injected meth into his penis. Patient states he normally injects into his legs. Patient also complains of a abscess to the left thigh. Patient states the pain of his thigh is a 5 out of 10. Patient states the penile pain is better with rest. Pain is worse with palpation and movement and urinating. UPPER ABD TATOO ABD SOFT CIRC PHALLUS--- IRRITATION AT MEATUS TESTESNL NL SHAFT SKIN A/P MEATITIS HEMATURIA NEEDS CTAP PYRIDIUM FR DYSURIA RECOMMEND DRUG SCREEN Past History Past Medical History: other (Meth abuse) Medications and Allergies Allergies Allergy/AdvReac Type Severity Reaction Status Date / Time No Known Allergies Allergy Verified 09/27/20 22:18 Home Medications Medication Instructions Recorded Confirmed Last Taken Type No Known Home Medications [No 09/27/20 09/27/20 Unknown History Reported Home Medications] Active Meds: Active Medications Acetaminophen (Acetaminophen 325 Mg Tab) 650 mg PO Q4H PRN PRN Reason: Pain MILD(1-3)/Fever >100.5/BUSTOS Famotidine (Famotidine 20 Mg Tab) 20 mg PO BID [facility] Last Admin: 09/28/20 09:52 Dose: 20 mg Documented by: Heparin Sodium (Porcine) (Heparin 5,000 Unit/1 Ml Vial) 5,000 unit SUB-Q Q8HR [facility] Last Admin: 09/28/20 05:56 Dose: 5,000 unit Documented by: Hydralazine HCl (Hydralazine 20 Mg/1 Ml Inj) 10 mg IV Q6H PRN PRN Reason: htn Sodium Chloride (Nacl 0.45% 1000 Ml) 1,000 mls @ 100 mls/hr IV DIRECT [facility] Piperacillin Sod/Tazobactam Sod (Zosyn/Ns 4.5gm/100ml) 4.5 gm in 100 mls @ 200 mls/hr IV Q8H [facility]; Protocol Last Admin: 09/28/20 09:52 Dose: 200 mls/hr Documented by: Vancomycin HCl 1,250 mg/ (Sodium Chloride) 275 mls @ 166.667 mls/hr IV Q12H [facility] Ketorolac Tromethamine (Ketorolac 10 Mg Tab) 10 mg PO Q4H PRN PRN Reason: Pain, Mild (1-3) Stop: 10/03/20 12:40 Morphine Sulfate (Morphine 2 Mg/1 Ml Inj) 2 mg IV Q4H PRN PRN Reason: Pain, Moderate (4-6) Last Admin: 09/28/20 10:42 Dose: 2 mg Documented by: Ondansetron HCl (Ondansetron 4 Mg/2 Ml Inj) 4 mg IV Q8H PRN PRN Reason: Nausea And Vomiting Sodium Chloride (Sodium Chloride 0.9% 10 Ml Flush Syringe) 10 ml IV BID [facility] Last Admin: 09/28/20 09:52 Dose: 10 ml Documented by: Sodium Chloride (Sodium Chloride 0.9% 10 Ml Flush Syringe) 10 ml IV PRN PRN PRN Reason: LINE FLUSH Exam - Constitutional Vitals: Temp Pulse Resp BP Pulse Ox 97.9 F 61 20 116/68 97 09/28/20 11:48 09/28/20 11:48 09/28/20 11:48 09/28/20 11:48 09/28/20 11:48 Results - Labs CBC & Chem 7: 09/28/20 08:14 09/28/20 08:14 Labs: Abnormal lab results 09/27/20 09/27/20 09/28/20 Range/Units 19:33 19:33 08:14 RDW 12.5 L 12.6 L (13.2-15.2) % [place] % (Auto) 8.2 H (0.0-7.3) % Seg Neutrophils % 73.4 H (40.0-70.0) % Carbon Dioxide (22-30) mmol/L Creatinine (0.8-1.3) mg/dL Total Protein 6.2 L (6.3-8.2) g/dL 06/18/21 Range/Units 08:14 RDW (13.2-15.2) % [place] % (Auto) (0.0-7.3) % Seg Neutrophils % (40.0-70.0) % Carbon Dioxide 21 L (22-30) mmol/L Creatinine 0.7 L (0.8-1.3) mg/dL Total Protein (6.3-8.2) g/dL
--- NOTE | 2020-09-28 14:45 | Consultation ---
History of Present Illness Consult date: 09/28/20 Chief complaint: Penile pain - History of present illness History of present illness: 40 yo male who injected the base of his penis with meth 5 days ago. He presented to the ED c/o 10 penile pain. He denies associated fever. States that it massey when urinating. He denies injecting anything via his meatus. Past History Past Medical History: other (Meth abuse) Medications and Allergies Allergies Allergy/AdvReac Type Severity Reaction Status Date / Time No Known Allergies Allergy Verified 09/27/20 22:18 Home Medications Medication Instructions Recorded Confirmed Last Taken Type No Known Home Medications [No 09/27/20 09/27/20 Unknown History Reported Home Medications] Active Meds: Active Medications Acetaminophen (Acetaminophen 325 Mg Tab) 650 mg PO Q4H PRN PRN Reason: Pain MILD(1-3)/Fever >100.5/BUSTOS Famotidine (Famotidine 20 Mg Tab) 20 mg PO BID [facility] Last Admin: 09/28/20 09:52 Dose: 20 mg Documented by: Heparin Sodium (Porcine) (Heparin 5,000 Unit/1 Ml Vial) 5,000 unit SUB-Q Q8HR [facility] Last Admin: 09/28/20 05:56 Dose: 5,000 unit Documented by: Hydralazine HCl (Hydralazine 20 Mg/1 Ml Inj) 10 mg IV Q6H PRN PRN Reason: htn Sodium Chloride (Nacl 0.45% 1000 Ml) 1,000 mls @ 100 mls/hr IV DIRECT PHANI Piperacillin Sod/Tazobactam Sod (Zosyn/Ns 4.5gm/100ml) 4.5 gm in 100 mls @ 200 mls/hr IV Q8H [facility]; Protocol Last Admin: 09/28/20 09:52 Dose: 200 mls/hr Documented by: Vancomycin HCl 1,250 mg/ (Sodium Chloride) 275 mls @ 166.667 mls/hr IV Q12H [facility] Ketorolac Tromethamine (Ketorolac 10 Mg Tab) 10 mg PO Q4H PRN PRN Reason: Pain, Mild (1-3) Stop: 10/03/20 12:40 Morphine Sulfate (Morphine 2 Mg/1 Ml Inj) 2 mg IV Q4H PRN PRN Reason: Pain, Moderate (4-6) Last Admin: 09/28/20 10:42 Dose: 2 mg Documented by: Ondansetron HCl (Ondansetron 4 Mg/2 Ml Inj) 4 mg IV Q8H PRN PRN Reason: Nausea And Vomiting Phenazopyridine HCl (Phenazopyridine 200 Mg Tab) 200 mg PO Q8HR [facility] Sodium Chloride (Sodium Chloride 0.9% 10 Ml Flush Syringe) 10 ml IV BID PHANI Last Admin: 09/28/20 09:52 Dose: 10 ml Documented by: Sodium Chloride (Sodium Chloride 0.9% 10 Ml Flush Syringe) 10 ml IV PRN PRN PRN Reason: LINE FLUSH Review of Systems All systems: negative (none) Exam Vital Signs Temp Pulse Resp BP Pulse Ox 98.2 F 95 H 18 131/84 97 09/27/20 15:04 09/27/20 15:04 09/27/20 15:04 09/27/20 15:04 09/27/20 15:04 - General physical appearance Positive: well developed, well nourished, no distress - Eyes Positive: PERRL, normal occular movement - ENT Positive: normal pinna, normal nares, normal mucosa, no hearing loss, no congestion - Neck Positive: no masses, no bruits, trachea midline, no venous distension - Respiratory Positive: normal expansion, normal respiratory effort, clear to auscultation - Cardiovascular Rhythm: regular Heart Sounds: Present: S1 & S2. Absent: rub, click - Extremities Extremities: no ischemia, pulses symmetrical, No edema - Breasts Breasts: normal, no mass, no skin changes - Abdomen Abdomen: Present: soft, bowel sounds normal. Absent: tender, distended Hernia: none - Genitourinary Male Genitourinary: penile edema (+bloody crust at the urethral meatus) Female Genitourinary: normal - Integumentary no rash, no growths, no abnormal pigmentation - Neurologic Neurologic: alert and oriented to time, place and person, motor strength and sensation are grossly intact - Musculoskeletal normal gait, normal posture - Psychiatric Psychiatric: appropriate mood/affect, intact judgment & insight Results - Labs 09/28/20 08:14 09/28/20 08:14 Abnormal lab results 09/27/20 09/27/20 09/28/20 Range/Units 19:33 19:33 08:14 RDW 12.5 L 12.6 L (13.2-15.2) % [place] % (Auto) 8.2 H (0.0-7.3) % Seg Neutrophils % 73.4 H (40.0-70.0) % Carbon Dioxide (22-30) mmol/L Creatinine (0.8-1.3) mg/dL Total Protein 6.2 L (6.3-8.2) g/dL 09/28/20 Range/Units 08:14 RDW (13.2-15.2) % [place] % (Auto) (0.0-7.3) % Seg Neutrophils % (40.0-70.0) % Carbon Dioxide 21 L (22-30) mmol/L Creatinine 0.7 L (0.8-1.3) mg/dL Total Protein (6.3-8.2) g/dL Diabetes panel 09/27/20 09/28/20 Range/Units 19:33 08:14 Sodium 138 138 (137-145) mmol/L Potassium 4.1 4.5 (3.6-5.0) mmol/L Chloride 103.9 104.5 (98-107) mmol/L Carbon Dioxide 25 21 L (22-30) mmol/L BUN 12 11 (9-20) mg/dL Creatinine 0.8 0.7 L (0.8-1.3) mg/dL Glucose 91 98 (75-100) mg/dL Calcium 9.1 9.1 (8.4-10.2) mg/dL AST 20 (5-40) units/L ALT 18 (7-56) units/L Alkaline Phosphatase 110 (35-129) units/L Total Protein 6.2 L (6.3-8.2) g/dL Albumin 4.1 (3.9-5) g/dL Calcium panel 09/27/20 09/28/20 Range/Units 19:33 08:14 Calcium 9.1 9.1 (8.4-10.2) mg/dL Albumin 4.1 (3.9-5) g/dL Pituitary panel 09/27/20 09/28/20 Range/Units 19:33 08:14 Sodium 138 138 (137-145) mmol/L Potassium 4.1 4.5 (3.6-5.0) mmol/L Chloride 103.9 104.5 (98-107) mmol/L Carbon Dioxide 25 21 L (22-30) mmol/L BUN 12 11 (9-20) mg/dL Creatinine 0.8 0.7 L (0.8-1.3) mg/dL Glucose 91 98 (75-100) mg/dL Calcium 9.1 9.1 (8.4-10.2) mg/dL Adrenal panel 09/27/20 09/28/20 Range/Units 19:33 08:14 Sodium 138 138 (137-145) mmol/L Potassium 4.1 4.5 (3.6-5.0) mmol/L Chloride 103.9 104.5 (98-107) mmol/L Carbon Dioxide 25 21 L (22-30) mmol/L BUN 12 11 (9-20) mg/dL Creatinine 0.8 0.7 L (0.8-1.3) mg/dL Glucose 91 98 (75-100) mg/dL Calcium 9.1 9.1 (8.4-10.2) mg/dL Total Bilirubin 0.50 (0.1-1.2) mg/dL AST 20 (5-40) units/L ALT 18 (7-56) units/L Alkaline Phosphatase 110 (35-129) units/L Total Protein 6.2 L (6.3-8.2) g/dL Albumin 4.1 (3.9-5) g/dL Assessment and Plan - Patient Problems (1) Penile cellulitis Current Visit: Yes Status: Acute Plan to address problem: 1) Follow Urologic consult recommendations. 2) I will sign off as I have nothing further to add.
[2020-09-28] MEDS: VANCOMYCIN 1,250 MG in SODIUM CHLORIDE 0.9% 250ML 250 ML IV SCH (16:41)
[2020-09-28] MEDS: PHENAZOPYRIDINE 200 MG TAB PO SCH ×2 (17:28→22:11)
--- NOTE | 2020-09-28 19:25 | Cat Scan Report ---
CT ABDOMEN PELVIS WITHOUT CONTRAST INDICATION / CLINICAL INFORMATION: HEMATURIA. TECHNIQUE: Axial CT images were obtained through the abdomen and pelvis without IV contrast. All CT scans at [facility] hospital location are performed using CT dose reduction for ALARA by means of automated exposure control. COMPARISON: None available. FINDINGS: The exam is of limited diagnostic quality secondary to lack of intra-abdominal fat and the lack of intravenous contrast LOWER CHEST: No significant abnormality. LIVER: No significant abnormality. GALLBLADDER: No significant abnormality. BILE DUCTS: No significant abnormality. PANCREAS: No significant abnormality. SPLEEN: No significant abnormality. ADRENALS: No significant abnormality. RIGHT KIDNEY and URETER: No significant abnormality. LEFT KIDNEY and URETER: No significant abnormality. STOMACH and SMALL BOWEL: No significant abnormality. COLON: No significant abnormality. APPENDIX: No significant abnormality. PERITONEUM: No free fluid. No free air. No fluid collection. LYMPH NODES: No significant adenopathy. AORTA and ARTERIES: No significant abnormality. IVC and VEINS: No significant abnormality. URINARY BLADDER: No significant abnormality. REPRODUCTIVE ORGANS: No significant abnormality ADDITIONAL FINDINGS: None. SKELETAL SYSTEM: No significant abnormality. IMPRESSION: 1. No gross abnormality identified, exam is markedly limited diagnostic capability. Repeat with oral and IV contrast would be of benefit for further evaluation with delayed imaging through the bladder Signer Name: Edward Neves MD Signed: 09/28/2020 7:21 PM Workstation Name: [id number]
[2020-09-29] MEDS: PIPERACIL/TAZOBACTA 4.5/NS 100 4.5 GM/100 ML VIAL IV SCH ×3 (00:52→18:22)
[2020-09-29] MEDS: VANCOMYCIN 1,250 MG in SODIUM CHLORIDE 0.9% 250ML 250 ML IV SCH ×2 (05:28→15:56)
[2020-09-29] MEDS: PHENAZOPYRIDINE 200 MG TAB PO SCH ×3 (05:29→21:18)
[2020-09-29] MEDS: HEPARIN 5,000 UNIT/1 ML VIAL SUB-Q SCH ×3 (05:40→21:18)
[2020-09-29 07:43] LABS: BUN/Creatinine Ratio 14; Blood Urea Nitrogen 11 mg/dL (9-20); Calcium 9.2 mg/dL (8.4-10.2); Hemolysis Index 24
--- NOTE | 2020-09-29 08:04 | Progress Note ---
Assessment and Plan Assessment and plan: (1) Penile cellulitis Current Visit: Yes Status: Acute Plan to address problem: Admit the patient to the medical floor. Cardiac diet. Half-normal saline at the rate of 100 cc/h. Zosyn 4.5 g IV every 8 hours and vancomycin 1 g IV every 12 hours. Will consult surgery as well as urology to see the patient. Blood culture. Wound culture recheck CBC BMP in the morning (2) Cellulitis of left thigh Current Visit: Yes Status: Acute Plan to address problem: Half-normal saline at the rate of 100 cc/h. Zosyn 4.5 g IV every 8 hours and vancomycin 1 g IV every 12 hours. Will consult surgery as well as urology to see the patient. Blood culture. Wound culture recheck CBC BMP in the morning (3) Penile pain Current Visit: Yes Status: Acute Plan to address problem: Tylenol 659 p.o. every 6 hours as needed. Morphine 2 mg IV every 4 hours as needed. (4) Methamphetamine abuse Current Visit: Yes Status: Acute Plan to address problem: We will counseled the patient regarding quit taking methamphetamine. (5) DVT prophylaxis Current Visit: Yes Status: Acute Plan to address problem: Heparin 5000 units subcu every 8 hours for DVT prophylaxis. Pepcid 20 mg p.o. twice daily for GI prophylaxis. Patient is a full code 09/28/2020 -Continue with IV Zosyn and vancomycin. Patient has ulcer on the tip of the penis and on the left inner thigh. Patient is complaining of pain when he urinates. There is a consult placed for urology and infectious disease. -Patient was extensively counseled about cessation of meth use -Pain control -Continue continue with current management 09/29/2020 -Patient is on IV antibiotics. Patient was evaluated by urology and recommend CT abdomen and pelvis, it was done but limited because of lack of IV and p.o. contrast, but no gross abnormality identified. UDS was ordered but not collected and I communicated with patient's nurse to collect it today. Disposition is per urology recommendation. History Interval history: Patient was seen and evaluated this morning Patient is complaining when he urinates Hospitalist Physical - Physical exam Narrative exam: Not in cardiopulmonary distress. The patient appeared well nourished and normally developed. Vital signs as documented. Head exam is unremarkable. No scleral icterus . Neck is without jugular venous distension, thyromegaly, or carotid bruits. Lungs are clear to auscultation. Cardiac exam reveals regular rate and Rhythm. Abdominal exam reveals normal bowel sounds, nontender, no organomegaly. Extremities are nonedematous and both femoral and pedal pulses are normal. WORKFORCE PLANNER: Alert and oriented 3. No focal weakness. ; small dark ulcer on the tip of the penis Skin; there is small dark wound on the left upper inner thigh - Constitutional Vitals: Temp Pulse Resp BP Pulse Ox 98 F 64 20 146/82 96 09/29/20 06:00 09/29/20 06:00 09/29/20 06:00 09/29/20 06:00 09/28/20 21:19 General appearance: Present: no acute distress, well-nourished Results - Labs CBC & Chem 7: 09/28/20 08:14 09/29/20 06:21 Labs: Laboratory Last Values WBC 7.8 K/mm3 (4.5-11.0) 09/28/20 08:14 RBC 3.87 M/mm3 (3.65-5.03) 09/28/20 08:14 Hgb 12.4 gm/dl (11.8-15.2) 09/28/20 08:14 Hct 36.3 % (35.5-45.6) 09/28/20 08:14 MCV 94 fl (84-94) 09/28/20 08:14 MCH 32 pg (28-32) 09/28/20 08:14 MCHC 34 % (32-34) 09/28/20 08:14 RDW 12.6 % (13.2-15.2) L 09/28/20 08:14 Plt Count 275 K/mm3 (140-440) 09/28/20 08:14 Lymph % (Auto) 15.9 % (13.4-35.0) 09/28/20 08:14 [place] % (Auto) 5.7 % (0.0-7.3) 09/28/20 08:14 Eos % (Auto) 3.8 % (0.0-4.3) 09/28/20 08:14 Baso % (Auto) 1.2 % (0.0-1.8) 09/28/20 08:14 Lymph # (Auto) 1.2 K/mm3 (1.2-5.4) 09/28/20 08:14 [place] # (Auto) 0.4 K/mm3 (0.0-0.8) 09/28/20 08:14 Eos # (Auto) 0.3 K/mm3 (0.0-0.4) 09/28/20 08:14 Baso # (Auto) 0.1 K/mm3 (0.0-0.1) 09/28/20 08:14 Seg Neutrophils % 73.4 % (40.0-70.0) H 09/28/20 08:14 Seg Neutrophils # 5.8 K/mm3 (1.8-7.7) 09/28/20 08:14 PT 12.9 Sec. (12.2-14.9) 09/28/20 08:14 INR 0.92 (0.87-1.13) 09/28/20 08:14 Sodium 138 mmol/L (137-145) 09/29/20 06:21 Potassium 4.1 mmol/L (3.6-5.0) 09/29/20 06:21 Chloride 103.3 mmol/L (98-107) 09/29/20 06:21 Carbon Dioxide 25 mmol/L (22-30) 09/29/20 06:21 Anion Gap 14 mmol/L 09/29/20 06:21 BUN 11 mg/dL (9-20) 09/29/20 06:21 Creatinine 0.8 mg/dL (0.8-1.3) 09/29/20 06:21 Estimated GFR > 60 ml/min 09/29/20 06:21 BUN/Creatinine Ratio 14 % 09/29/20 06:21 Glucose 109 mg/dL (75-100) H 09/29/20 06:21 Calcium 9.2 mg/dL (8.4-10.2) 09/29/20 06:21 Total Bilirubin 0.50 mg/dL (0.1-1.2) 09/27/20 19:33 AST 20 units/L (5-40) 09/27/20 19:33 ALT 18 units/L (7-56) 09/27/20 19:33 Alkaline Phosphatase 110 units/L (35-129) 09/27/20 19:33 Total Protein 6.2 g/dL (6.3-8.2) L 09/27/20 19:33 Albumin 4.1 g/dL (3.9-5) 09/27/20 19:33 Albumin/Globulin Ratio 2.0 % 09/27/20 19:33 Urine Color Yellow (Yellow) 09/27/20 22:00 Urine Turbidity Hazy (Clear) 09/27/20 22:00 Urine pH 6.0 (5.0-7.0) 09/27/20 22:00 Ur Specific [place] 1.026 (1.003-1.030) 09/27/20 22:00 Urine Protein <15 mg/dl mg/dL (Negative) 09/27/20 22:00 Urine Glucose (UA) Neg mg/dL (Negative) 09/27/20 22:00 Urine Ketones Neg mg/dL (Negative) 09/27/20 22:00 Urine Blood Mod (Negative) 09/27/20 22:00 Urine Nitrite Neg (Negative) 09/27/20 22:00 Urine Bilirubin Neg (Negative) 09/27/20 22:00 Urine Urobilinogen 4.0 mg/dL (<2.0) 09/27/20 22:00 Ur Leukocyte Esterase Neg (Negative) 09/27/20 22:00 Urine WBC (Auto) 6.0 /HPF (0.0-6.0) 09/27/20 22:00 Urine RBC (Auto) 36.0 /HPF (0.0-6.0) 09/27/20 22:00 U Epithel Cells (Auto) < 1.0 /HPF (0-13.0) 09/27/20 22:00 Urine Mucus Few /HPF 09/27/20 22:00 Microbiology: Microbiology 09/28/20 18:45 Peripheral/Venous Blood Culture - Preliminary Culture in Progress 09/28/20 18:37 Peripheral/Venous Blood Culture - Preliminary Culture in Progress [place]/IV: Voiding Method Toilet Active Medications - Current Medications Current Medications: Generic Name Dose Route Start Last Admin Trade Name Freq PRN Reason Stop Dose Admin Acetaminophen 650 mg 09/27/20 22:14 Acetaminophen 325 Mg Tab PO Q4H PRN Pain MILD(1-3)/Fever >100.5/BUSTOS Famotidine 20 mg 09/28/20 10:00 09/28/20 22:11 Famotidine 20 Mg Tab PO 20 mg BID PHANI Administration Heparin Sodium (Porcine) 5,000 unit 09/28/20 06:00 09/29/20 05:40 Heparin 5,000 Unit/1 Ml Vial SUB-Q 5,000 unit Q8HR PHANI Administration Hydralazine HCl 10 mg 09/27/20 22:16 Hydralazine 20 Mg/1 Ml Inj IV Q6H PRN htn Sodium Chloride 1,000 mls @ 100 mls/hr 09/27/20 23:00 Nacl 0.45% 1000 Ml IV DIRECT PHANI Piperacillin Sod/Tazobactam Sod 4.5 gm in 100 mls @ 200 mls/hr 09/27/20 23:00 09/29/20 00:52 Zosyn/Ns 4.5gm/100ml IV 200 mls/hr Q8H PHANI Administration Protocol Vancomycin HCl 1,250 mg/ 275 mls @ 166.667 mls/hr 09/28/20 16:00 09/29/20 05:28 Sodium Chloride IV 166.667 mls/hr Q12H PHANI Administration Ketorolac Tromethamine 10 mg 09/28/20 12:41 09/29/20 05:29 Ketorolac 10 Mg Tab PO 10/03/20 12:40 10 mg Q4H PRN Administration Pain, Mild (1-3) Morphine Sulfate 2 mg 09/27/20 22:14 09/28/20 23:02 Morphine 2 Mg/1 Ml Inj IV 2 mg Q4H PRN Administration Pain, Moderate (4-6) Ondansetron HCl 4 mg 09/27/20 22:14 Ondansetron 4 Mg/2 Ml Inj IV Q8H PRN Nausea And Vomiting Phenazopyridine HCl 200 mg 09/28/20 14:00 09/29/20 05:29 Phenazopyridine 200 Mg Tab PO 200 mg Q8HR PHANI Administration Sodium Chloride 10 ml 09/28/20 10:00 09/28/20 22:11 Sodium Chloride 0.9% 10 Ml Flush Syringe IV 10 ml BID PHANI Administration Sodium Chloride 10 ml 09/27/20 22:14 Sodium Chloride 0.9% 10 Ml Flush Syringe IV PRN PRN LINE FLUSH
[2020-09-29] MEDS: FAMOTIDINE 20 MG TAB PO SCH ×2 (09:35→21:20)
[2020-09-29 14:30] LABS: Benzodiazepines Screen,Urine Negative; Cannabinoid Screen,Urine Negative; Cocaine Screen,Urine Negative; Methadone Screen,Urine Negative; Opiate Screen,Urine Negative
[2020-09-29 14:58] LABS: Amphetamine Screen,Urine Positive
[2020-09-29] MEDS: MORPHINE 2 MG/1 ML INJ IV PRN (16:07)
[2020-09-29 21:59] VITALS: BP 125/70
[2020-09-30] MEDS: PIPERACIL/TAZOBACTA 4.5/NS 100 4.5 GM/100 ML VIAL IV SCH ×2 (00:54→10:15)
[2020-09-30] MEDS: VANCOMYCIN 1,250 MG in SODIUM CHLORIDE 0.9% 250ML 250 ML IV SCH (03:39)
[2020-09-30] MEDS: HEPARIN 5,000 UNIT/1 ML VIAL SUB-Q SCH (06:06)
[2020-09-30] MEDS: PHENAZOPYRIDINE 200 MG TAB PO SCH (06:06)
[2020-09-30] MEDS: FAMOTIDINE 20 MG TAB PO SCH (10:16)
--- NOTE | 2020-09-30 10:30 | Discharge Summary ---
Providers - Providers Date of Admission: 09/28/20 12:09 Date of discharge: 09/30/20 Attending physician: BLAIR ALMONTE MD 09/27/20 22:14 Consult to Physician [CONS] Routine Comment: Consulting Provider: JAS GREGG Physician Instructions: Reason For Exam: Penile cellulitis 09/27/20 22:21 Consult to Physician [CONS] Routine Comment: Consulting Provider: JADYN MILLS Physician Instructions: Reason For Exam: Penile cellulitis 09/28/20 01:25 Consult to Wound/ET Nurse [CONS] Routine Reason For Exam: wound eval Primary care physician: [employer] DISPATCHER Hospitalization Reason for admission: Penile cellulitis, methamphetamine abuse Condition: Stable Hospital course: History of present illness: 40-year-old male with history of meth abuse was brought to the emergency room because of penile pain for last 5 days. patient states he injected meth into the base of his penis 5 days ago. Patient states 2 days ago he developed a black area to the head of his penis. Patient states the pain is severe. Patient dates the pain is a 10 out of 10. Patient states he is unable to urinate. Patient states he has to stick something into the head of his penis to help him urinate. Patient denies fever and chills. Patient states this is the first time he ever injected meth into his penis. Patient states he normally injects into his legs. Patient also complains of a abscess to the left thigh. Patient states the pain of his thigh is a 5 out of 10. Patient states the penile pain is better with rest. Pain is worse with palpation and movement and urinating. Hospital course (1) Penile cellulitis Current Visit: Yes Status: Acute Plan to address problem: Admit the patient to the medical floor. Cardiac diet. Half-normal saline at the rate of 100 cc/h. Zosyn 4.5 g IV every 8 hours and vancomycin 1 g IV every 12 hours. Will consult surgery as well as urology to see the patient. Blood culture. Wound culture recheck CBC BMP in the morning (2) Cellulitis of left thigh Current Visit: Yes Status: Acute Plan to address problem: Half-normal saline at the rate of 100 cc/h. Zosyn 4.5 g IV every 8 hours and vancomycin 1 g IV every 12 hours. Will consult surgery as well as urology to see the patient. Blood culture. Wound culture recheck CBC BMP in the morning (3) Penile pain Current Visit: Yes Status: Acute Plan to address problem: Tylenol 659 p.o. every 6 hours as needed. Morphine 2 mg IV every 4 hours as needed. (4) Methamphetamine abuse Current Visit: Yes Status: Acute Plan to address problem: We will counseled the patient regarding quit taking methamphetamine. (5) DVT prophylaxis Current Visit: Yes Status: Acute Plan to address problem: Heparin 5000 units subcu every 8 hours for DVT prophylaxis. Pepcid 20 mg p.o. twice daily for GI prophylaxis. Patient is a full code 09/28/2020 -Continue with IV Zosyn and vancomycin. Patient has ulcer on the tip of the penis and on the left inner thigh. Patient is complaining of pain when he urinates. There is a consult placed for urology and infectious disease. -Patient was extensively counseled about cessation of meth use -Pain control -Continue continue with current management 09/29/2020 -Patient is on IV antibiotics. Patient was evaluated by urology and recommend CT abdomen and pelvis, it was done but limited because of lack of IV and p.o. contrast, but no gross abnormality identified. UDS was ordered but not collected and I communicated with patient's nurse to collect it today. Disposition is per urology recommendation. Patient was seen and evaluated this morning, pain is getting better. UDS showed methamphetamine. CT abdomen and pelvis did not show gross abnormality. Patient was treated with IV antibiotics. I have discussed with urology and they recommend to discharge if the patient is stable. Patient was hemodynamically stable and discharged home. Patient was counseled extensively about cessation of using methamphetamine. Patient discharged with Augmentin for a week. Disposition: DC- TO HOME OR SELFCARE Final Discharge Diagnosis (Prints w/discharge instructions): penile cellulitis. Methamphetamine abuse Time spent for discharge: 35 minutes - Discharge Diagnoses (1) Cellulitis of left thigh Status: Acute (2) Methamphetamine abuse Status: Acute (3) Penile cellulitis Status: Acute (4) Penile pain Status: Acute Core Measure Documentation - Palliative Care Palliative Care/ Comfort Measures: Not Applicable - Core Measures Any of the following diagnoses?: none Exam - Physical Exam Narrative exam: Not in cardiopulmonary distress. The patient appeared well nourished and normally developed. Vital signs as documented. Head exam is unremarkable. No scleral icterus . Neck is without jugular venous distension, thyromegaly, or carotid bruits. Lungs are clear to auscultation. Cardiac exam reveals regular rate and Rhythm. Abdominal exam reveals normal bowel sounds, nontender, no organomegaly. Extremities are nonedematous and both femoral and pedal pulses are normal. [employer] SPECIALIST: Alert and oriented 3. No focal weakness. ; small dark ulcer on the tip of the penis Skin; there is small dark wound on the left upper inner thigh - Constitutional Vitals: Temp Pulse Resp BP Pulse Ox 98.6 F 125 H 18 125/70 90 09/29/20 21:58 09/29/20 21:58 09/29/20 21:58 09/29/20 21:58 09/29/20 21:58 Plan Activity: no restrictions Weight Bearing Status: Full Weight Bearing Diet: regular Follow up with: PRIMARY CARE, [Primary Care Provider] - 3-5 Days Prescriptions: Amoxicillin/K Clav Tab [Augmentin 875 mg] 1 tab PO Q12HR #14 tab Ketorolac [Toradol] 10 mg PO Q4H PRN #20 tablet PRN Reason: Pain, Mild (1-3)
== END 2020-09-30 12:00 | disposition home or self-care (01) | DRG 728 ==
LOC: ED 14:58 → 3A 21:52 → OBSVTOIN 09-28 12:09
PROVIDERS: ADMIT Hospitalist; ATTEND Internal Medicine
DX: N48.22 Cellulitis of corpus cavernosum and penis (principal); L03.116 Cellulitis of left lower limb; L02.416 Cutaneous abscess of left lower limb; F17.200 Nicotine dependence, unspecified, uncomplicated; F15.10 Other stimulant abuse, uncomplicated; Z71.51 Drug abuse counseling and surveillance of drug abuser
CPT/HCPCS: 36415; 74176; 80048; 80053; 80307; 81001; 85025; 85610; 87040; 96374; 96375; G0378; J1170; J1644; J2270; J2405; J2543; J3370; J7030; J7050